=== PATIENT | female | born 1955 | race Caucasian/White ===

== ENCOUNTER 2021-04-07 08:59 | Emergency (ER) | payer BC ==
[2021-04-07 09:30] VITALS: BMI 24.6
[2021-04-07 10:30] VITALS: TEMP 98.8
[2021-04-07 10:57] LABS: BASO % 0.4 % (0-2.0); CALCIUM 9.2 mg/dL (8.5-10.1); EOS % 0.7 % (0-4.5); HEMATOCRIT 47.2 % (32.4-45.2); HEMOGLOBIN 16.2 GM/dL (10.7-15.3); LYMPH % 27.6 % (8-40); MCH 29.2 pg (25.7-33.7); MCHC 34.4 g/dl (32.0-36.0); MEAN PLT VOLUME 8.5 fl (7.5-11.1); NEUT % 64.3 % (42.8-82.8); PLATELET COUNT 174 10^3/uL (134-434); RBC 5.56 M/mm3 (3.60-5.2); RDW 13.2 % (11.6-15.6); WHITE BLOOD COUNT 5.9 K/mm3 (4.0-10.0)
[2021-04-07 10:58] LABS: ALBUMIN 4.3 g/dl (3.4-5.0); BLOOD UREA NITROGEN 8.8 mg/dL (7-18)
[2021-04-07] MEDS ORDERED: amLODIPine BESYLATE 5 MG TABLET (FP) PO ONE (10:58)
[2021-04-07 11:03] LABS: BILIRUBIN,TOTAL 0.4 mg/dL (0.2-1); TOT PROT 7.9 g/dl (6.4-8.2)
[2021-04-07] MEDS ORDERED: amLODIPine BESYLATE 5 MG TABLET (FP) ONE (11:13)
[2021-04-07 12:15] VITALS: BP 173/80; PULSE 83
== END 2021-04-07 12:10 | disposition home or self-care (01) ==
LOC: JER 08:59
DX: I10 Essential (primary) hypertension (principal)
CPT/HCPCS: 36415; 71046-TC-FY; 80053; 84443; 84484; 85025; 93005; 93010; 99285-25